=== PATIENT | male | born 1965 | race Caucasian/White ===

== ENCOUNTER 2017-07-22 12:21 | Outpatient (CLI) | payer BC | END 2017-07-22 12:22 | disposition home or self-care (01) | LOC: BICRAD 12:21 | PROVIDERS: ATTEND Obstetrics & Gynecology | DX: R06.00 Dyspnea, unspecified (principal) | CPT/HCPCS: 71046 ==

== ENCOUNTER 2017-08-11 08:04 | Outpatient (CLI) | payer BC | END 2017-08-11 08:05 | disposition home or self-care (01) | LOC: BICCT 08:04 | PROVIDERS: ATTEND Internal Medicine Sleep Medicine | DX: R93.8 Abnormal findings on diagnostic imaging of other specified body structures (principal) | CPT/HCPCS: 71250 ==

== ENCOUNTER 2024-11-02 09:50 | Outpatient (CLI) | payer BC | END 2024-11-02 09:51 | disposition home or self-care (01) | LOC: BICCT 09:50 | PROVIDERS: ATTEND Registered Nurse | DX: Z12.2 Encounter for screening for malignant neoplasm of respiratory organs (principal); F17.218 Nicotine dependence, cigarettes, with other nicotine-induced disorders | CPT/HCPCS: 71271 ==